=== PATIENT | female | born 1960 | race Caucasian/White ===

== ENCOUNTER 2017-04-21 08:59 | Day surgery (SDC) | payer SELFPAY, BC ==
[~2017-04-21 08:59] MED LIST: Bupivacaine 0.25% 10 ML SDV ONE; Lactated Ringers 1,000 ML IV SCH
[2017-04-21] MEDS ORDERED: Acetaminophen/HYDROcodone 325-5 MG Tab PO PRN (09:00)
[2017-04-21] MEDS ORDERED: ceFAZolin 2 GM in Premix Bag 1 BAG IV ONE (09:00)
--- NOTE | 2017-04-21 09:58 | PCM.PREANE ---
Preanesthetic Assessment - Anesthesia/Transfusion/Family Hx Anesthesia History: Prior Anesthesia Without Reaction Other Type of Anesthesia Reaction Comment: DENIES ANY PROBLEMS WITH ANESTHESIA Family History of Anesthesia Reaction: No Transfusion History: No Prior Transfusion(s) Intubation History: Unknown - Review of Systems General: No Symptoms Pulmonary: No Symptoms Cardiovascular: No Symptoms Gastrointestinal: No Symptoms Neurological: No Symptoms Other: Reports: None - Physical Assessment Height: 1.63 m Weight: 46.72 kg ASA Class: 1 Mental Status: Alert & Oriented x3 Airway Class: Mallampati = 1 Dentition: Reports: [place](s) (multiple upper front) Thyro-Mental Finger Breadths: 3 Mouth Opening Finger Breadths: 3 ROM/Head Extension: Full Lungs: Clear to Auscultation, Normal Respiratory Effort Cardiovascular: Regular Rate, Regular Rhythm - Allergies Allergies/Adverse Reactions: Allergies Allergy/AdvReac Type Severity Reaction Status Date / Time No Known Allergies Allergy Verified 02/09/14 11:25 - Blood Blood Available: No - Anesthesia Plan Pre-Op Medication Ordered: None - Acknowledgements Anesthesia Type Planned: General Anesthesia Pt an Appropriate Candidate for the Planned Anesthesia: Yes Alternatives and Risks of Anesthesia Discussed w Pt/Guardian: Yes Pt/Guardian Understands and Agrees with Anesthesia Plan: Yes PreAnesthesia Questionnaire Gastrointestinal History: Reports: None Genitourinary History: Reports: None DEVELOPMENT TRAINER History: Reports: - Past Surgical History Head Surgeries/Procedures: Reports: None GI Surgical History: Reports: Colonoscopy Female Surgical History: Reports: Breast Implant (18 years ago) - SUBSTANCE USE Smoking Status *Q: Never Smoker Days Per Week of Alcohol Use: 1 Recreational Drug Use History: No - HOME MEDS Home Medications: Home Meds . [No Known Home Meds] 02/09/14 [History] - CURRENT (IN HOUSE) MEDS Current Meds: Current Medications Hydrocodone Bitart/Acetaminophen ([place] 325-5 Mg) 1 tab PO Q4H PRN PRN Reason: Pain Bupivacaine HCl (Sensorcaine-Mpf 0.25%) 20 ml INJECT ONETIME ONE Stop: 04/21/17 10:01 Cefazolin Sodium (Ancef) 2,000 mg .XX ONETIME ONE Stop: 04/21/17 10:01 Gentamicin Sulfate (Gentamicin) 80 mg .XX ONETIME ONE Stop: 04/21/17 10:01 Bacitracin 50,000 units/ (Sodium Chloride) 10 mls @ 0 mls/hr IRR ONETIME JAE PRN Reason: 1 UNITS/HR Lactated Ringer's (Ringers, Lactated) 1,000 mls @ 125 mls/hr IV ASDIRECTED JAE Discontinued Medications Bupivacaine HCl (Sensorcaine-Mpf 0.25%) Confirm Administered Dose 10 ml .ROUTE .STK-MED ONE Stop: 04/21/17 07:22 Bupivacaine HCl (Sensorcaine-Mpf 0.25%) Confirm Administered Dose 10 ml .ROUTE .STK-MED ONE Stop: 04/21/17 07:22 Cefazolin Sodium/Dextrose 2 gm (/ Premix) 50 mls @ 100 mls/hr IV ONETIME ONE Stop: 04/21/17 09:29
[2017-04-21] MEDS ORDERED: BACITRACIN IRR SCH (10:00)
[2017-04-21] MEDS ORDERED: ceFAZolin 1,000 MG VIAL ONE (10:00)
[2017-04-21] MEDS ORDERED: Bupivacaine 0.25% 10 ML SDV INJECT ONE (10:00)
[2017-04-21] MEDS ORDERED: SODIUM CHLORIDE 0.9% IRR SCH (10:00)
[2017-04-21] MEDS ORDERED: Gentamicin 40 MG/ML 2 ML Vial ONE (10:00)
[2017-04-21] MEDS ORDERED: Lidocaine 2% 5 ML SDV ONE (10:46)
[2017-04-21] MEDS ORDERED: Propofol 200 MG/20 ML SDV ONE (10:46)
[2017-04-21] MEDS ORDERED: Midazolam 1 MG/ML 2 ML SDV ONE (10:47)
[2017-04-21] MEDS ORDERED: fentaNYL 100 MCG/2 ML SDV ONE (10:47)
[2017-04-21] MEDS ORDERED: Ondansetron 4 MG/2 ML SDV ONE (10:48)
[2017-04-21] MEDS ORDERED: EPINEPHrine 1 MG/ML SDV ONE (11:06)
[2017-04-21] MEDS ORDERED: ceFAZolin 1 GM Vial ONE (11:06)
[2017-04-21] MEDS ORDERED: HYDROmorphone 2 MG/ML Syringe ONE (12:08)
[2017-04-21] MEDS ORDERED: Neostigmine Methylsulfate 1 MG/ML 5 ML Syringe ONE (12:54)
[2017-04-21] MEDS ORDERED: HYDROmorphone 2 MG/ML Syringe IVPUSH ONE (13:15)
[2017-04-21] MEDS ORDERED: fentaNYL 100 MCG/2 ML SDV IVPUSH PRN (13:15)
--- NOTE | 2017-04-21 13:50 | PCM.POSTAN ---
POST ANESTHESIA ASSESSMENT - MENTAL STATUS Mental Status: Alert, Oriented - RESPIRATORY Respiratory Status: Respiratory Rate WNL, Airway Patent, O2 Saturation Stable - CARDIOVASCULAR CV Status: Pulse Rate WNL, Blood Pressure Stable - GASTROINTESTINAL GI Status: No Symptoms - POST OP HYDRATION Hydration Status: Adequate & Stable
--- NOTE | 2017-04-21 13:58 | PCM48HPAN ---
Post Anesthesia Note - EVALUATION WITHIN 48HRS OF ANESTHETIC Vital Signs in Normal Range: Yes Patient Participated in Evaluation: Yes Respiratory Function Stable: Yes Airway Patent: Yes Cardiovascular Function Stable: Yes Hydration Status Stable: Yes Pain Control Satisfactory: Yes Nausea and Vomiting Control Satisfactory: Yes Mental Status Recovered: Yes
--- NOTE | 2017-04-27 08:35 | PCM.OPNOTE ---
- General Post-Op/Procedure Note Date of Surgery/Procedure: 04/21/17 Operative Procedure(s): bilateral breast implant exchange with capsulotomies Pre Op Diagnosis: cosmetic Post-Op Diagnosis: Same Anesthesia Technique: General ET Tube, Local Primary Surgeon: Shara Cordova Adolescent Counselor: Maria Ines Vaz Complications: None Condition: Good
--- NOTE | 2017-04-28 22:29 | OR ---
SURGEON: ERNESTO ZAMBRANO MD DATE OF PROCEDURE: 04/21/2017 PREOPERATIVE DIAGNOSIS: Bilateral breast implant contracture. POSTOPERATIVE DIAGNOSIS: Bilateral breast implant contracture. PROCEDURE: Exchange of bilateral implants with capsulotomies. INDICATIONS: Ms. Ontiveros is a 56-year-old female seen today for exchange of bilateral breast implants. Risks and benefits of exchange were discussed and she was in agreement to proceed. Risks were including, but not limited to, bleeding, infection, damage to underlying or overlying structures, possible need for future interventions, possible scarring. PROCEDURE IN DETAIL: After informed consent was obtained and placed on the chart, the patient was brought to the operating theater and laid in supine position. After adequate general anesthetic was obtained, the area was prepped and draped and a time-out was completed to confirm side and site. Attention was then paid to the inframammary fold incisions and a 15 blade was used to dissect through this. The implant pocket was easily located and the previous implant was removed. There are 275 mL saline implants. Once adequately removed, attention was then paid to copious irrigation of the pocket and capsulotomy is to allow expansion of the breast. The capsule was minimally thickened. With the capsulotomies, it was appreciated to be fully released on the left breast. Unfortunately, the right breast pocket was sitting laterally and thus it was brought more medial with some dissection and stay sutures using 2-0 PDS. Once adequately placed, attention was then paid to exchange of the implants for the Natrelle style [id number], serial number on the right is [id number], serial number on the left is [id number]. Once adequately placed, the patient was sat up and symmetry was appreciated with minor adjustments. Once symmetry was appreciated, the wounds were closed using deep 3-0 Monocryl stitches, a running 4-0 subcuticular for the skin and Steri-Strips. The patient tolerated this well. All counts and needles were correct at the end of the case. FOLLOWUP INSTRUCTIONS: The patient will see us in clinic in approximately 1 week, sooner if any problems, questions, or concerns. A compression bra was placed at the end of the case. PRIMARY SURGEON: SECONDARY SURGEON: HOTEL CASINO FLOORPERSON: REASON HOTEL CASINO FLOORPERSON WAS NECESSARY: ROLE OF HOTEL CASINO FLOORPERSON: JASVIR / RICKI /[id number]
== END 2017-04-21 14:20 | disposition home or self-care (01) ==
LOC: MW.SDS 08:59
PROVIDERS: ATTEND Plastic Surgery
DX: T85.44XA Capsular contracture of breast implant, initial encounter (principal); Z72.0 Tobacco use
CPT/HCPCS: 19330; 19340; 19371; C1789; J0690; J1170; J2250; J2405; J3010; J7120; 00402; J0171; J2704